=== PATIENT | female | born 1980 | race Caucasian/White ===

== ENCOUNTER 2025-06-01 19:02 | Emergency (ER) | payer BC, SELFPAY ==
[2025-06-01 19:13] VITALS: BP 110/81
[2025-06-01 21:56] VITALS: BMI 25.9
--- NOTE | 2025-06-01 22:09 | ED.GENMED ---
History of Present Illness
General
Chief Complaint: Headache
Time Seen by Provider: 06/01/25 21:52
History of Present Illness
History of Present Illness:
45-year-old female presents to the emergency department for evaluation of right-sided headache as well as neck pain with throat discomfort for the past 3 to 4 days. Initially began as right sided headache but progressively worsened over that time.
Gradual in onset. Rated 7 out of 10, has not taken any medications for the symptoms.
Review of Systems
Review of Systems
Allergies reviewed?: Yes
All Other Systems: ROS reviewed and negative except as documented in HPI and ROS
Phy Exam
Physical Exam
Physical Exam:
GEN: Well appearing, NAD, WDWN
HEENT: Oral mucosa moist, no scleral icterus,, reproducible tenderness along the occipital nerve distribution particularly at the upper cervical spine on the right side, no skin lesions noted
Cardiac: Regular rate
Lung: No respiratory distress, no tachypnea
MSK: No gross deformity or injuries
Skin: Good color, no pallor or jaundice, no rashes
Neuro: AO x3, cranial nerves II through XII grossly intact moves all extremities freely
Psych: Calm, cooperative
Course
Orders/Labs/Results
Orders:
Orders
06/01/25 19:17
CT Head W/o Iv Contrast Urgent
Comment:
Reason For Exam: r/o giant cell arteritis
06/01/25 22:09
Ketorolac [Toradol] 30 mg IM NOW STA
Vital Signs
Initial and Last Documented VS:
Initial Vital Signs
Temp Pulse Resp BP Pulse Ox
98.2 F 58 16 110/81 99
06/01/25 19:13 06/01/25 19:13 06/01/25 19:13 06/01/25 19:13 06/01/25 19:13
Last Documented Vital Signs
Temp Pulse Resp BP Pulse Ox
98.2 F 58 16 110/81 99
06/01/25 19:13 06/01/25 19:13 06/01/25 19:13 06/01/25 19:13 06/01/25 22:10
MDM/Problems Addressed
MDM/Problems Addressed:
Patient's pain is consistent with occipital neuralgia given the reproducibility, no clinical concern for giant cell arteritis particular given that she is under [address] was reassuring, pain improved after administration of Toradol
*Pulse Oximetry
SaO2: 99
Oxygen Mode of Delivery: Room air
Patient hypoxic: no
*Critical Care Note
Total Time (30-74mins, 75-104mins- exclusive of procedures): Not Applicable
ED Attending Note
-
Portions of this chart may have been created with voice recognition software.� Occasional wrong word or��sound alike� substitutions may have occurred due to the inherent limitations of voice recognition software.
Discharge Plan
Departure
Patient Disposition: Home (Routine Discharge)
Date of Disposition: 06/01/25
Time of Disposition: 22:55
Patient with high blood pressure during this ER visit?: No
Discharge Problem:
Occipital headache
Instructions: Headache, Adult (DC)
Prescriptions:
New
diclofenac sodium 75 mg tablet,delayed release (DR/EC)
75 mg PO BID PRN (Reason: headache) Qty: 20 0RF
Interventions
Interventions:
*Risk Screen - Suicide Last Done: 06/01/25 19:13
*General Assessment Last Done: 06/01/25 19:13
*Neglect/Abuse Screening Last Done: 06/01/25 19:13
*ED- Fall Risk Assessment Last Done: 06/01/25 21:56
*ED COVID-19 Vaccine History Last Done: 06/01/25 21:56
*Nursing Disposition Last Done: 06/01/25 22:55
ED- Neurological Assessment Last Done: 06/01/25 21:56
Discharge Date and Time
Discharge Date/Time: 06/01/25 22:55
Print Language: [place]
[2025-06-01] MEDS: TORADOL 30 MG IM (22:15)
== END 2025-06-01 22:55 | disposition home or self-care (01) ==
LOC: EMR 19:02
PROVIDERS: EMERGENCY PHYSICIAN Emergency Medicine; FAMILY PHYSICIAN Family Medicine
DX: R51.9 Headache, unspecified (principal)
CPT/HCPCS: 99284; 96372; 70450

== ENCOUNTER 2025-06-07 06:55 | Emergency (ER) | payer BC, SELFPAY ==
[2025-06-07 07:07] VITALS: BP 120/90
[2025-06-07 07:37] VITALS: BP 121/87
[2025-06-07 07:39] VITALS: BMI 25.2
--- NOTE | 2025-06-07 08:06 | ED.GENMED ---
History of Present Illness
General
Chief Complaint: Headache
Source: patient
Time Seen by Provider: 06/07/25 07:18
History of Present Illness
History of Present Illness:
45-year-old female with no significant past medical history presenting back to the emergency department due to continued right sided headache described to be a burning sensation along the right side of her scalp noting that even pressure to the area
or lying her head on the pillow causes her increased pain. She was given a prescription for diclofenac which she reports taking as prescribed without any relief. She presented back to the ER today in hopes of receiving a nerve block which was
offered to her on the last visit but she had declined at that time. Patient did make an appointment with pain management but this is still a week and a half away and she states she is having a hard time functioning with the continued pain. Patient
states no other associated symptoms including visual disturbances, photophobia or phonophobia, fevers, or rashes to the affected area, facial drooping, focal weakness or numbness or any other concerns. Family history was noted for migraine however
patient states she herself was never diagnosed with this. Social history otherwise noncontributory
Past History
Past History
ED Past Medical History: None
ED Past Surgical History: None
Social History
Tobacco: Non-smoker
Alcohol: Occasional
Drug: None
Personal:
Living: with family
Review of Systems
Review of Systems
All Other Systems: ROS reviewed and negative except as documented in HPI and ROS
Phy Exam
Physical Exam
Physical Exam:
GENERAL: Alert , in no apparent distress
HEAD: Normocephalic atraumatic, there is reproducible tenderness within the right occipital region radiating to the temporal region proximal to the right auricular region of the scalp. No overlying rashes or erythema
EYE: conjunctiva clear, pupils 4 mm bilateral
NECK: Supple, no significant adenopathy. No meningismus
ENT: o/p clr, mmm.
CARDIAC: Regular rate and rhythm
LUNGS: Clear breath sounds bilaterally, no acute respiratory distress, no wheezes/rales/rhonchi
NEUROLOGICAL: Alert and oriented, ambulates with steady gait, no sensory deficits
SKIN: Warm and dry, skin intact.
MUSCULOSKELETAL: well perfused.
PSYCH: Normal and appropriate interaction.
Scores
Heart Failure Risk
Heart Failure Risk Score: Not Applicable
Heart Score for Chest Pain Patients
STEMI patient?: Not applicable
Withdrawal Assessment of Alcohol
Withdrawal Assessment Completed?: Not applicable
Course
Orders/Labs/Results
Orders:
Orders
06/07/25 07:44
Test Result ONCE
06/07/25 07:50
Basic Metabolic Panel Urgent
CRP [C-Reactive Protein] Urgent
Complete Blood Count/With Diff Urgent
ESR [Erythrocyte Sed Rate] Urgent
Ehrlichia/Anaplasma by PCR [S] Urgent
HCG, Serum Qualitative Screen Urgent
Lyme Progressive Urgent
Blood Parasites Urgent
SIA Source: Blood/Venous
Specimen Description:
Abnormal Lab Results
06/07/25
07:50
WBC 4.5 L 10^3/uL
(4.8-10.8)
RBC 3.66 L 10^6/uL
(4.20-5.40)
Hgb 11.5 L g/dL
(12.0-16.0)
Hct 33.9 L %
(37.0-47.0)
MCH 31.4 H pg
(27.0-31.0)
MPV 12.0 H fL
(7.4-10.4)
ESR 22 H mm/hour
(0-20)
Chloride 109 H mmol/L
(98-107)
06/07/25 07:50
06/07/25 07:50
Vital Signs
Initial and Last Documented VS:
Initial Vital Signs
Temp Pulse Resp BP Pulse Ox
98.2 F 73 16 120/90 98
06/07/25 07:07 06/07/25 07:07 06/07/25 07:07 06/07/25 07:07 06/07/25 07:07
Last Documented Vital Signs
Temp Pulse Resp BP Pulse Ox
98.2 F 73 16 105/75 100
06/07/25 09:03 06/07/25 09:03 06/07/25 09:03 06/07/25 09:03 06/07/25 09:03
MDM/Problems Addressed
Differential Diagnosis Includes:
Occipital neuralgia
Tension headache
Migraine headache
Beginning stages of 7th nerve palsy/'s palsy
Less concern for intracranial bleeding/mass/malignancy given negative CT scan on last visit 1 week ago
No symptoms to suggest an otherwise infectious etiology such as meningitis
MDM/Problems Addressed:
45-year-old female presenting back to the emergency department after being evaluated here last week for right-sided headache described to be a burning sensation along the right side of her scalp. There were 2 focal areas of significant tenderness
with 1 being in the right occiput and another in the right temporal region. Patient requesting nerve block that was offered to her however I discussed with patient that while I cannot perform the nerve block here we could trial a localized trigger
point injection to which she was agreeable with. The 2 areas that were most tender were isolated and instilled with 0.25% bupivacaine. Patient did not have lab work done when she was here last so we will check this including tickborne illness
panel. ESR and CRP ordered. Patient declining anything else for the pain at this time. Disposition pending.
*Pulse Oximetry
SaO2: 100
Oxygen Mode of Delivery: Room air
Patient hypoxic: no
*Critical Care Note
Total Time (30-74mins, 75-104mins- exclusive of procedures): Not Applicable
Patient Management
Escalation/DeEscalation of care consider admission/obs:
Patient reports near resolution of her headache following the bupivacaine instillation. She does feel comfortable being discharged home. I did advise patient on her lab work findings including a very mild and potentially nonspecific leukopenia.
She will follow-up with her primary care provider to have this rechecked in a few weeks. She is aware of return precautions to the emergency department. Will continue to follow-up with pain management as scheduled.
ED Attending Note
-
Portions of this chart may have been created with voice recognition software.� Occasional wrong word or��sound alike� substitutions may have occurred due to the inherent limitations of voice recognition software.
Discharge Plan
Departure
Patient Disposition: Home (Routine Discharge)
Date of Disposition: 06/07/25
Time of Disposition: 08:54
Patient with high blood pressure during this ER visit?: No
Discharge Problem:
Headache
Instructions: Headache, Adult (DC)
Prescriptions:
No Action
diclofenac sodium 75 mg tablet,delayed release (DR/EC)
75 mg PO BID PRN (Reason: headache) Qty: 20 0RF
Referrals:
Jarrett Vyas MD [Family Provider, Family Practice]
Interventions
Interventions:
*Risk Screen - Suicide Last Done: 06/07/25 07:07
*General Assessment Last Done: 06/07/25 07:34
*Neglect/Abuse Screening Last Done: 06/07/25 07:07
*ED- Fall Risk Assessment Last Done: 06/07/25 07:34
*ED COVID-19 Vaccine History Last Done: 06/07/25 07:34
*Nursing Disposition Last Done: 06/07/25 09:03
ED- Neurological Assessment Last Done: 06/07/25 07:34
Discharge Date and Time
Discharge Date/Time: 06/07/25 09:03
Print Language: WOLOF
[2025-06-07 08:08] LABS: Hematocrit 33.9 % (37.0-47.0); Hemoglobin 11.5 g/dL (12.0-16.0); Mean Corp Hgb Conc. 33.9 g/dL (33.0-37.0); Mean Corpuscular Volume 92.6 fL (81.0-99.0); Nucleated Red Blood Cells % 0 %; Platelet Count 186 10^3/uL (130-400); Red Cell Dist. Width 13.1 % (11.5-14.5)
[2025-06-07 08:17] LABS: HCG, Serum Qualitative Screen Negative
[2025-06-07 08:27] LABS: Blood Urea Nitrogen 12 mg/dl (7-17); Calcium 9.5 mg/dl (8.4-10.2); Carbon Dioxide 27 mmol/L (22-30); Chloride 109 mmol/L (98-107); Estimated Creatinine Clearance 96 ml/min; Glucose 84 mg/dl (70-99); Potassium 4.0 mmol/L (3.5-5.1); Sodium 140 mmol/L (135-145); eGFR > 60.00
--- NOTE | 2025-06-07 09:00 | EDRN ---
Reviewed discharge instructions with patient. Verbalized understanding. Ambulated with steady gait to the lobby.
[2025-06-07 09:03] VITALS: BP 105/75
[2025-06-07 09:38] LABS: C-Reactive Protein < 5.00 mg/L (0.0-10.00)
[2025-06-07 16:01] LABS: Lyme Antibody Screen, EIA Negative (Negative)
== END 2025-06-07 09:03 | disposition home or self-care (01) ==
LOC: EMR 06:55
PROVIDERS: Physician Assistant Medical; EMERGENCY PHYSICIAN Emergency Medicine; FAMILY PHYSICIAN Family Medicine
DX: R51.9 Headache, unspecified (principal); R20.8 Other disturbances of skin sensation
CPT/HCPCS: 20552; 99284; 80048; 84703; 85025; 85652; 86140; 86618; 87015; 87207; 87468; 87484; 87798